=== PATIENT | male | born 1950 | race Caucasian/White ===

== ENCOUNTER 2023-08-11 05:22 | Emergency (ER) | payer MEDICARE, OTHER ==
[2023-08-11 05:28] VITALS: BP 165/85; PULSE 97
[2023-08-11] MEDS: Sodium Chloride 0.9% 10 ML Syringe FLUSH PRN ×2 (05:42→07:02)
[2023-08-11 05:54] LABS: BASOPHILS PERCENT AUTO 0.5 % (0.0-1.0); EOSINOPHILS PERCENT AUTO 2.3 % (1.0-3.0); HEMOGLOBIN 12.8 g/dL (14.0-18.0); LYMPHOCYTES PERCENT AUTO 21.3 % (20.5-50.1); MEAN CORPUSCULAR HEMOGLOBIN 30.5 pg (27.0-34.0); MEAN CORPUSCULAR HGB CONC 36.6 g/dL (33.0-35.0); MEAN CORPUSCULAR VOLUME 83.3 fL (80-100); MONOCYTES PERCENT AUTO 5.5 % (2-8); NEUTROPHILS PERCENT AUTO 70.4 % (42.2-75.2); PLATELET COUNT,PLT 259 10^3/uL (150-450); WHITE BLOOD CELL COUNT,WBC 8.6 10^3/uL (5.0-10.0)
[2023-08-11 06:07] LABS: APPEARANCE,URINE CLEAR (CLEAR); BILIRUBIN,URINE NEGATIVE (NEGATIVE); COLOR,URINE YELLOW (YELLOW); GLUCOSE,URINE 100 (NEGATIVE); KETONES,URINE NEGATIVE (NEGATIVE); LEUKOCYTE ESTERASE,URINE NEGATIVE (NEGATIVE); NITRITE,URINE NEGATIVE (NEGATIVE); OCCULT BLOOD,URINE TRACE-INTACT (NEGATIVE); PH,URINE 6.5 (5.0-9.0); PROTEIN,URINE 100 (NEGATIVE); UROBILINOGEN,URINE 0.2 mg/dL (0.2-1.0)
[2023-08-11 06:12] LABS: INR 2.4 (0.9-1.2); PROTHROMBIN TIME 24.2 SEC (9.0-12.0); PTT,PARTIAL THROMBOPLSTIN TIME 41.5 SEC (22.0-34.0)
[2023-08-11 06:16] LABS: LACTIC ACID 1.9 mmol/L (0.4-2.0)
[2023-08-11 06:19] LABS: AMORPHOUS SEDIMENT,URINE FEW /HPF (NOT SEEN); BACTERIA,URINE RARE /HPF (0-FEW/HPF); EPITHELIAL CELLS,URINE RARE /HPF (NOT SEEN); MUCUS,URINE FEW /LPF (NOT SEEN); WBC,URINE 0-5 /HPF (0-5/HPF)
[2023-08-11 06:23] LABS: ALBUMIN 3.2 g/dL (3.4-5.0); ANION GAP 12.6 mEq/L (7-13); BILIRUBIN TOTAL 0.8 mg/dL (0.2-1.0); BUN/CREATININE RATIO 16.8 (No establ ref range); C-REACTIVE PROTEIN 1.23 ng/dL (<=0.30); CALCIUM 9.2 mg/dL (8.5-10.1); CREATININE 2.32 mg/dL (0.70-1.30); EST CRCL DRUG DOSING (CG) 32.05 mL/min; MAGNESIUM 1.2 mg/dL (1.8-2.4); POTASSIUM,K 3.6 mmol/L (3.5-5.1); TSH ULTRASENSITIVE 2.09 uIU/mL (0.36-3.74)
[2023-08-11 06:25] LABS: A/G RATIO 0.67
[2023-08-11 06:35] LABS: CORONAVIRUS COVID-19 NAA NEGATIVE (NEGATIVE); INFLUENZA A NAA NEGATIVE (NEGATIVE); INFLUENZA B NAA NEGATIVE (NEGATIVE); RESPIRATORY SYNCYTIAL VIR NAA NEGATIVE (NEGATIVE)
[2023-08-11] MEDS ORDERED: Magnesium Sulfate/Water 2 GM in Premix Bag 1 BAG IV ONE (06:49)
[2023-08-11] MEDS ORDERED: Factor IX Complex Human 500 UNIT VIAL IV ONE ×2 (09:14→09:45)
== END 2023-08-11 09:59 ==
LOC: DL.ED 05:22
DX: S06.5X0A Traumatic subdural hemorrhage without loss of consciousness, initial encounter (principal); I48.91 Unspecified atrial fibrillation; E11.40 Type 2 diabetes mellitus with diabetic neuropathy, unspecified; Z20.822 Contact with and (suspected) exposure to COVID-19; Z79.4 Long term (current) use of insulin; Z79.01 Long term (current) use of anticoagulants; Z79.84 Long term (current) use of oral hypoglycemic drugs; Z79.899 Other long term (current) drug therapy; W22.8XXA Striking against or struck by other objects, initial encounter
CPT/HCPCS: 0241U; 36415; 70450; 71045; 80053; 81001; 83605; 83735; 83880; 84145; 84443; 84484; 85025; 85610; 85730; 86140; 87040; 93005; 93010; 96365; 96366; 96375; 96376; 99285; 99285-25; J3475; J3490; J7168

== ENCOUNTER 2023-10-13 14:36 | Emergency (ER) | payer MEDICARE, OTHER ==
[2023-10-13] MEDS ORDERED: Sodium Chloride 0.9% 10 ML Syringe FLUSH PRN (15:05)
[2023-10-13] MEDS ORDERED: Ondansetron 4 MG/2 ML SDV IV ONE (15:05)
[2023-10-13] MEDS ORDERED: Sodium Chloride 0.9% 1,000 ML IV ONE (15:05)
[2023-10-13 15:53] LABS: ALBUMIN 2.7 g/dL (3.4-5.0); ANION GAP 16.5 mEq/L (7-13); BILIRUBIN TOTAL 0.5 mg/dL (0.2-1.0); BUN/CREATININE RATIO 13.2 (No establ ref range); CALCIUM 9.5 mg/dL (8.5-10.1); CREATININE 2.34 mg/dL (0.70-1.30); EST CRCL DRUG DOSING (CG) 31.3 mL/min; MAGNESIUM 1.2 mg/dL (1.8-2.4); POTASSIUM,K 4.5 mmol/L (3.5-5.1); PROTEIN TOTAL,TP 8.1 g/dL (6.4-8.2)
[2023-10-13 16:01] LABS: A/G RATIO 0.5
[2023-10-13] MEDS ORDERED: Magnesium Sulfate/Water 2 GM in Premix Bag 1 BAG IV ONE ×2 (16:06→16:07)
[2023-10-13 16:44] VITALS: BP 141/61; PULSE 96
[2023-10-13] MEDS ORDERED: Acetaminophen 500 MG Tab PO ONE (17:06)
== END 2023-10-13 18:46 | disposition home or self-care (01) ==
LOC: DL.ED 14:36
DX: E86.0 Dehydration (principal); E83.42 Hypomagnesemia; Z79.899 Other long term (current) drug therapy
CPT/HCPCS: 36415; 80053; 83735; 87070; 96361; 96374; 99284; 99285; A9270; J2405; J3475; J7030; J3490

== ENCOUNTER 2023-10-21 11:21 | Inpatient (IN) | payer MEDICARE, OTHER ==
[2023-10-21] MEDS ORDERED: Scopalamine 1mg/3day Transdermal Patch TRDERM PRN (13:14)
[2023-10-21] MEDS ORDERED: LORazepam 2 MG/ML SDV ONE (14:45)
[2023-10-21] MEDS: LORazepam 2 MG/ML SDV IVPUSH PRN ×3 (14:45→23:45)
[2023-10-21] MEDS: Sodium Chloride 0.9% 10 ML Syringe FLUSH PRN (20:43)
[2023-10-21] MEDS: Morphine 4 MG/ML Syringe IVPUSH PRN (22:18)
[2023-10-21] MEDS: Sodium Chloride 0.9% 10 ML Syringe FLUSH SCH (22:20)
[2023-10-22] MEDS: Morphine 4 MG/ML Syringe IVPUSH PRN ×2 (01:29→20:38)
[2023-10-22] MEDS: Sodium Chloride 0.9% 10 ML Syringe FLUSH SCH ×3 (13:26→21:09)
[2023-10-22] MEDS: LORazepam 2 MG/ML SDV IVPUSH PRN ×4 (13:26→23:26)
[2023-10-22] MEDS: levETIRAcetam in NaCl (iso-os) 500 MG in Premix Bag 1 BAG IV SCH ×2 (21:55)
[2023-10-23] MEDS: Morphine 4 MG/ML Syringe IVPUSH PRN ×3 (01:43→18:28)
[2023-10-23] MEDS: levETIRAcetam in NaCl (iso-os) 500 MG in Premix Bag 1 BAG IV SCH ×4 (09:40→21:31)
[2023-10-23] MEDS: Sodium Chloride 0.9% 10 ML Syringe FLUSH SCH ×2 (09:45→22:07)
[2023-10-23] MEDS ORDERED: Sennosides/Docusate Sodium 50-8.6 MG Tab PO PRN (11:22)
[2023-10-23] MEDS: LORazepam 2 MG/ML SDV IVPUSH PRN ×3 (11:29→21:31)
[2023-10-23 22:00] VITALS: BP 119/71; PULSE 85
[2023-10-24] MEDS: Morphine 4 MG/ML Syringe IVPUSH PRN ×5 (00:33→23:41)
[2023-10-24] MEDS: LORazepam 2 MG/ML SDV IVPUSH PRN ×3 (00:59→21:38)
[2023-10-24] MEDS: levETIRAcetam in NaCl (iso-os) 500 MG in Premix Bag 1 BAG IV SCH ×4 (09:13→21:00)
[2023-10-24] MEDS: Sodium Chloride 0.9% 10 ML Syringe FLUSH SCH ×2 (09:19→21:05)
[2023-10-25] MEDS: LORazepam 2 MG/ML SDV IVPUSH PRN ×5 (00:36→20:51)
[2023-10-25] MEDS: Morphine 4 MG/ML Syringe IVPUSH PRN ×4 (04:53→22:10)
[2023-10-25] MEDS ORDERED: LORazepam 2 MG/ML SDV IVPUSH ONE (05:45)
[2023-10-25] MEDS ORDERED: LORazepam 2 MG/ML SDV IVPUSH PRN (05:45)
[2023-10-25] MEDS: levETIRAcetam in NaCl (iso-os) 500 MG in Premix Bag 1 BAG IV SCH ×4 (08:48→20:21)
[2023-10-25] MEDS: Sodium Chloride 0.9% 10 ML Syringe FLUSH SCH ×2 (08:55→20:25)
[2023-10-25] MEDS: Bisacodyl 10 MG Supp RECTAL PRN (09:46)
[2023-10-26] MEDS: LORazepam 2 MG/ML SDV IVPUSH PRN ×2 (01:45→05:40)
[2023-10-26] MEDS: Morphine 4 MG/ML Syringe IVPUSH PRN (05:25)
[2023-10-26] MEDS: levETIRAcetam in NaCl (iso-os) 500 MG in Premix Bag 1 BAG IV SCH ×2 (08:29)
[2023-10-26] MEDS: Bisacodyl 10 MG Supp RECTAL PRN (08:35)
[2023-10-26] MEDS ORDERED: Morphine 10 MG/0.5 ML Oral Syringe SL PRN (09:10)
[2023-10-26] MEDS ORDERED: LORazepam 1 MG Tab PO PRN (09:10)
[2023-10-26] MEDS: Sodium Chloride 0.9% 10 ML Syringe FLUSH SCH ×2 (09:33→20:30)
[2023-10-26] MEDS ORDERED: Morphine 10 MG/ML Syringe IVPUSH PRN (10:00)
[2023-10-26] MEDS ORDERED: LORazepam 2 MG/ML SDV IVPUSH PRN (10:01)
[2023-10-26] MEDS: Sodium Chloride 0.9% 10 ML Syringe FLUSH PRN ×2 (10:22→10:51)
[2023-10-26] MEDS: Morphine 10 MG/ML Syringe IVPUSH PRN ×3 (10:32→22:55)
[2023-10-26] MEDS: LORazepam 2 MG/ML SDV IVPUSH SCH ×6 (10:40→22:50)
[2023-10-26] MEDS: Atropine 1% Ophth Soln 5 ML Bottle SL PRN ×3 (10:41→22:53)
[2023-10-27] MEDS: Morphine 10 MG/ML Syringe IVPUSH PRN (01:27)
[2023-10-27] MEDS: LORazepam 2 MG/ML SDV IVPUSH SCH ×2 (01:28→06:16)
[2023-10-27] MEDS: Atropine 1% Ophth Soln 5 ML Bottle SL PRN (01:30)
== END 2023-10-27 03:05 | disposition expired | DRG 951 ==
LOC: DL.ED 11:21 → DL.MS 12:42 → UNDODISIN 10-25 11:48
PROVIDERS: ADMIT Internal Medicine; ATTEND Internal Medicine
PROC: 0T9B70Z Drainage of Bladder with Drainage Device, Via Natural or Artificial Opening (ICD-10-PCS; principal; 2023-10-22)
DX: Z51.5 Encounter for palliative care (principal); I63.9 Cerebral infarction, unspecified; I13.0 Hypertensive heart and chronic kidney disease with heart failure and stage 1 through stage 4 chronic kidney disease, or unspecified chronic kidney disease; I50.30 Unspecified diastolic (congestive) heart failure; E11.22 Type 2 diabetes mellitus with diabetic chronic kidney disease; D63.1 Anemia in chronic kidney disease; I27.20 Pulmonary hypertension, unspecified; Z66 Do not resuscitate; I48.91 Unspecified atrial fibrillation; H91.90 Unspecified hearing loss, unspecified ear; E78.5 Hyperlipidemia, unspecified; N18.30 Chronic kidney disease, stage 3 unspecified; G40.409 Other generalized epilepsy and epileptic syndromes, not intractable, without status epilepticus; K59.00 Constipation, unspecified; F41.9 Anxiety disorder, unspecified; Z79.84 Long term (current) use of oral hypoglycemic drugs; I10 Essential (primary) hypertension; E11.9 Type 2 diabetes mellitus without complications; Z79.899 Other long term (current) drug therapy; Z79.4 Long term (current) use of insulin
CPT/HCPCS: 51702; 70450; 99223; 99233; 99238; 99285; A9270-GY; J1953; J2060; J2270; J3490